=== PATIENT | male | born 1940 | race Caucasian/White ===

== ENCOUNTER → 2018-07-30 12:41 | Outpatient (CLI) | payer MEDICARE, OTHER, SELFPAY ==
--- NOTE | 2018-07-30 | DI.ECHO.S_ITS ---
[place] [facility]---------+ [facility] +---------+ : : [address] : [address] : : : : [id number] : : : : Phone: [phone] : : [phone] +---------+ Echocardiogram Report + + :Name: RANDY MALLOY Vishnu Study Date: 07/30/2018 Height: 67 in : :[facility] Exam Location: [facility] Weight: 253 lb : : Gender: Male BSA: 2.2 m2 : :: 1940 Age: 78 yrs BP: 110/70 mmHg: :Reason For Study: ASCENDING AORTA DILATION : :Ordering Physician: Timothy : :Linden Miranda Performed By: Eli Cardoza : :Referring: TIMOTHY MIRANDA : + + Interpretation Summary 1) Normal left ventricular size, wall motion, and sytolic function (EF 55- 60%). 2) Normal right ventricular size and functionj. 3) The left atrium is severely dilated. 4) There is moderate to severe mitral regurgitation. Mitral valve is not well visualized on this study. 5) The ascending aorta is mild-moderately enlarged (diameter 4.5cm). 6) Compared to the Echo done 05/11/2017, mitral regurgitation appears worse on this study. Procedure: A two-dimensional transthoracic echocardiogram with color flow and Doppler was performed. The study quality was technically adequate. Comparison is made with the echocardiogram of 05/11/17. The patient was in normal sinus rhythm during the exam. Occassional ectopy. Left Ventricle: The left ventricle is normal in size. Left ventricular wall thickness is at the upper limits of normal. The left ventricular ejection fraction is normal. The ejection fraction is estimated to be 55-60%. There are no focal wall motion abnormalities. Diastolic parameters suggest a relaxation abnormality of the left ventricle, consistent with probable normal filling pressures. Right Ventricle: The right ventricle is normal in size and function. Atria: The left atrium is severely dilated. The right atrium is mildly dilated. There is no Doppler evidence for an interatrial shunt. Mitral Valve: The mitral valve leaflets appear mildly thickened, but open well. There is moderate to severe mitral regurgitation. The mitral regurgitant jet is eccentrically directed. PISA could not be reliably performed due to 'eccentric jet'. Aortic Valve: The aortic valve is trileaflet. There is mild aortic valve sclerosis. The aortic valve opens well. There is trace aortic regurgitation. Tricuspid Valve: The tricuspid valve is normal. There is mild tricuspid regurgitation. The right ventricular systolic pressure is estimated to be at least 27 mmHg based on an estimated right atrial pressure of 3 mm Hg. Pulmonic Valve: The pulmonic valve is not well visualized. There is trace pulmonic regurgitation. Great Vessels: The aortic root is mildly dilated. The ascending aorta is mild-moderately enlarged. The aortic arch is mildly enlarged. The pulmonary is not well visualized. The IVC is of normal diameter and collapses greater than 50% with a sniff. This suggests a low right atrial pressure of 3 mm Hg. Pericardium/ Pleura There is no pericardial effusion. There is no pleural effusion. MMode/2D Measurements & Calculations LVIDd: 4.3 cm LVOT diam: 2.4 cm LVIDs: 3.3 cm Ao root diam: 4.3 cm FS: 22.1 % asc Aorta Diam: 4.5 cm EPSS: 0.30 cm Ao Arch Diam (Prox Trans): 3.8 cm IVSd: 1.2 cm LVPWd: 1.0 cm LV lim. diameter/BSA (cm/m^2): 1.9 LV sys. diameter/BSA (cm/m^2): 1.5 LA A2 area: 39.9 cm2 RA long axis: 6.7 cm LA A4 area: 37.6 cm2 RA area: 25.4 cm2 LA length (vol): 7.5 cm RA vol: 81.1 ml LA vol: 170.7 ml RA : 36.3 ml/m2 LA vol index: 76.4 ml/m2 IVC diam: 1.6 cm RVD1 (basal): 4.3 cm RVD2 (mid): 3.6 cm TAPSE: 2.3 cm Doppler Measurements & Calculations Ao V2 max: 136.7 cm/sec LVOT Max Shamar: 91.4 cm/sec Ao V2 mean: 89.9 cm/sec LV V1 max P.3 mmHg Ao max P.5 mmHg LV V1 VTI: 17.8 cm Ao mean P.7 mmHg GREGORY(I,D): 2.8 cm2 Ao V2 VTI: 28.4 cm GREGORY(V,D): 3.0 cm2 sev ratio: 0.63 GREGORY indexed to BSA (cm^2/m^2): 1.3 MV E max shamar: 117.4 cm/sec TR max shamar: 245.8 cm/sec MV A max shamar: 79.3 cm/sec TR max P.2 mmHg MV E/A: 1.5 PA V2 max: 72.3 cm/sec Med Peak E' Shamar: 8.2 cm/sec PA V2 mean: 49.0 cm/sec E/E' med: 14.3 PA mean P.1 mmHg Lat Peak E' Shamar: 11.5 cm/sec PA pr(Accel): 44.1 mmHg E/E' lat: 10.2 E/e' average: 12.2 MV dec time: 0.17 sec MV P1/2t: 51.4 msec MV P1/2t max shamar: 118.2 cm/sec MVA(P1/2t): 4.3 cm2 Reading Physician:04:29 PM
== END ==
PROVIDERS: Family Provider Internal Medicine; Visit Provider Internal Medicine Cardiovascular Disease
DX: I08.3 Combined rheumatic disorders of mitral, aortic and tricuspid valves (principal); I77.819 Aortic ectasia, unspecified site
CPT/HCPCS: 93306

== ENCOUNTER → 2019-11-20 14:15 | Outpatient (CLI) | payer MEDICARE, OTHER, SELFPAY ==
--- NOTE | 2019-11-20 | DI.ECHO.S_ITS ---
[place] [facility]---------+ [facility] +---------+ : : [address] : [address] : : : : [id number] : : : : Phone: [phone] : : [phone] +---------+ Echocardiogram Report + + :Name: RANDY MALLOY Vishnu Study Date: 11/20/2019 Height: 70 in : :[facility] Weight: 232 lb : : Gender: Male BSA: 2.2 m2 : :: 1940 Age: 79 yrs BP: 136/82 mmHg: :Reason For Study: MITRAL INSUFFICIENCY : :Ordering Physician: Timothy Cheatham : :Ruth Performed By: EDILBERTOF : :Referring: TIMOTHY MIRANDA : + + Interpretation Summary 1) Normal left ventricular size, wall motion, and systolic function (EF 65- 70%). 2) Normal right ventricular size and function. 3) The left atrium is moderately dilated. 4) Moderate mitral regirgitation that is anteriorly directed. 5) The ascending aorta is mildly enlarged at 4.4cm. 6) Compared to the Echo done 07/30/2018, mitral regurgitation appears stable to slightly improved on [facility] study. Procedure: A two-dimensional transthoracic echocardiogram with color flow and Doppler was performed. The study quality was technically difficult. A contrast injection of Definity was performed to improve assessment of LV function. Comparison is made with the echocardiogram of 07/30/2018. The subcostal views were difficult to obtain and are suboptimal in quality. The patient was in normal sinus rhythm during the exam. Left Ventricle: The left ventricle is normal in size. Left ventricular wall thickness is at the upper limits of normal. The ejection fraction is estimated to be 65-70%. Right Ventricle: The right ventricle is normal in size and function. Atria: The left atrium is moderately dilated. The right atrium is normal in size. There is no Doppler evidence for an interatrial shunt. Mitral Valve: The mitral valve leaflets appear mildly thickened, but open well. There is moderate mitral regurgitation. The mitral regurgitant jet is eccentrically directed. Aortic Valve: The aortic valve is trileaflet. The aortic valve opens well. There is mild aortic valve sclerosis. There is no aortic valve stenosis. There is mild aortic regurgitation. Tricuspid Valve: The tricuspid valve is normal in structure and function. There is trace tricuspid regurgitation. Right ventricular systolic pressure is estimated to be 22 mmHg plus the clinically estimated CVP which cannot be estimated on this exam. Pulmonic Valve: The pulmonic valve is normal in structure and function. There is no pulmonic valvular regurgitation. Great Vessels: The aortic root is normal size. The ascending aorta is mildly enlarged. The aortic arch is at the upper limits of normal in size. The inferior vena cava was not visualized. Pericardium/ Pleura There is no pericardial effusion. MMode/2D Measurements & Calculations LVIDd: 4.3 cm LVOT diam: 2.2 cm LVIDs: 2.7 cm Ao root diam: 3.9 cm FS: 37.2 % Aortic Jxn: 4.2 cm IVSd: 0.91 cm asc Aorta Diam: 4.4 cm LVPWd: 1.1 cm Ao Arch Diam (Prox Trans): 3.7 cm LV lim. diameter/BSA (cm/m^2): 1.9 LV sys. diameter/BSA (cm/m^2): 1.2 LA A2 area: 27.3 cm2 RA long axis: 4.3 cm LA A4 area: 23.5 cm2 RA area: 15.1 cm2 LA length (vol): 6.2 cm RA vol: 45.6 ml LA vol: 88.3 ml RA : 20.5 ml/m2 LA vol index: 39.7 ml/m2 RVD1 (basal): 3.8 cm RVD2 (mid): 3.1 cm TAPSE: 2.4 cm Doppler Measurements & Calculations Ao V2 max: 150.8 cm/sec LVOT Max Shamar: 114.2 cm/sec Ao V2 mean: 93.4 cm/sec LV V1 max P.2 mmHg Ao max P.1 mmHg LV V1 VTI: 16.4 cm Ao mean P.0 mmHg GREGORY(I,D): 2.5 cm2 Ao V2 VTI: 25.2 cm GREGORY(V,D): 2.9 cm2 sev ratio: 0.65 GREGORY indexed to BSA (cm^2/m^2): 1.1 MV E max shamar: 108.6 cm/sec TR max shamar: 234.9 cm/sec MV A max shamar: 74.2 cm/sec TR max P.1 mmHg MV E/A: 1.5 PA V2 max: 87.7 cm/sec Med Peak E' Shamar: 6.9 cm/sec PA V2 mean: 61.6 cm/sec E/E' med: 15.7 PA mean P.7 mmHg Lat Peak E' Shamar: 13.2 cm/sec PA Accel Time: 0.10 sec E/E' lat: 8.2 E/e' average: 12.0 MV dec time: 0.16 sec MV P1/2t: 46.6 msec MVA(VTI): 2.4 cm2 MV V2 mean: 82.2 cm/sec MV P1/2t max shamar: 110.4 cm/sec MV mean P.9 mmHg MVA(P1/2t): 4.7 cm2 MV V2 VTI: 25.5 cm SV(LVOT): 62.3 ml Reading Physician:10:09 AM
== END ==
PROVIDERS: Family Provider Internal Medicine; Referring Provider Internal Medicine Cardiovascular Disease; Visit Provider Internal Medicine Cardiovascular Disease
DX: I08.0 Rheumatic disorders of both mitral and aortic valves (principal); I77.89 Other specified disorders of arteries and arterioles
CPT/HCPCS: 93306; Q9957

== ENCOUNTER → 2020-09-21 08:26 | Outpatient (CLI) | payer MEDICARE, OTHER, SELFPAY ==
--- NOTE | 2020-09-21 | DI.ECHO.S_ITS ---
[place] [facility]---------+ [facility] +---------+ : : [address] : [address] : : : : [id number] : : : : Phone: [phone] : [phone] +---------+ Echocardiogram Report + + :Name: KIKOASIYA PALMERChet Mares Study Date: 09/21/2020 Height: 70 in : :[facility] Weight: 238 lb : : Gender: Male BSA: 2.2 m2 : :: 1940 Age: 80 yrs BP: 128/86 mmHg: :Reason For Study: MITRAL REGURGITATION : :Ordering Physician: HESHAM, : :TIMOTHY Performed By: Wilda Mtz : :Referring: TIMOTHY MIRANDA : + + Interpretation Summary 1) Normal left ventricular size, wall motion, and systolic function (EF 65- 70%). 2) Borderline enlarged right ventricular size with normal function. 3) The left atrium is severely dilated. 4) Severe mitral regurgitation that is anteriorly directed. 5) The right ventricular systolic pressure is estimated to be at least 33 mmHg based on an estimated right atrial pressure of 3 mm Hg. 6) The ascending aorta is mildly enlarged at 4.3cm. 7) Compared to the Echo done 11/20/2019, mitral regurgitation has increased from moderate to severe on this study. Procedure: A two-dimensional transthoracic echocardiogram with color flow and Doppler was performed. The study quality was technically adequate. Comparison is made with the echocardiogram of 11/20/2019. The patient was in sinus rhythm with heart rates between 61-73 bpm during the exam. Left Ventricle: The left ventricle is normal in size. Left ventricular wall thickness is borderline increased. Left ventricular ejection fraction is estimated to be 65 +/- 5%. Diastolic parameters suggest a restrictive filling pattern consistent with probable significantly elevated filling pressures. Right Ventricle: The right ventricle is borderline dilated. The right ventricular systolic function is normal. Atria: The left atrium is severely dilated. Right atrial size is normal. There is no Doppler evidence for an interatrial shunt. Mitral Valve: The mitral valve leaflets appear mildly thickened, but open well. There is severe mitral regurgitation. The mitral regurgitant jet is eccentrically directed. E velocity > 1.2m/s and holosystolic jet despite being eccentric suggests severe MR. Aortic Valve: The aortic valve is trileaflet. The aortic valve is slightly calcified. There is no aortic valve stenosis. There is mild aortic regurgitation. Tricuspid Valve: The tricuspid valve is normal in structure and function. There is mild tricuspid regurgitation. The right ventricular systolic pressure is estimated to be at least 33 mmHg based on an estimated right atrial pressure of 3 mm Hg. Pulmonic Valve: The pulmonic valve is not well visualized. There is trace pulmonic regurgitation. Great Vessels: The aortic root is mildly dilated. The ascending aorta is mildly enlarged. The IVC is of normal diameter and collapses greater than 50% with a sniff. This suggests a low right atrial pressure of 3 mm Hg. Pericardium/ Pleura There is no pericardial effusion. There is no pleural effusion. MMode/2D Measurements & Calculations LVIDd: 5.0 cm LVOT diam: 2.0 cm LVIDs: 3.4 cm Ao root diam: 4.1 cm FS: 31.8 % Ao Arch Diam (Prox Trans): 3.8 cm EPSS: 1.1 cm IVSd: 0.86 cm LVPWd: 1.1 cm LV lim. diameter/BSA (cm/m^2): 2.2 LV sys. diameter/BSA (cm/m^2): 1.5 LA A2 area: 37.0 cm2 RA long axis: 5.6 cm LA A4 area: 29.9 cm2 RA area: 18.3 cm2 LA length (vol): 7.1 cm RA vol: 50.9 ml LA vol: 132.3 ml RA : 22.7 ml/m2 LA vol index: 58.9 ml/m2 IVC diam: 1.2 cm RVD1 (basal): 4.2 cm TAPSE: 2.3 cm Doppler Measurements & Calculations Ao V2 max: 152.5 cm/sec LVOT Max Shamar: 106.2 cm/sec Ao V2 mean: 93.6 cm/sec LV V1 max P.5 mmHg Ao max P.3 mmHg LV V1 VTI: 19.6 cm Ao mean P.2 mmHg GREGORY(I,D): 2.3 cm2 Ao V2 VTI: 26.7 cm GREGORY(V,D): 2.2 cm2 sev ratio: 0.73 GREGORY indexed to BSA (cm^2/m^2): 1.0 MV E max shamar: 126.9 cm/sec TR max shamar: 275.0 cm/sec MV A max shamar: 40.0 cm/sec TR max P.3 mmHg MV E/A: 3.2 PA V2 max: 67.9 cm/sec Med Peak E' Shamar: 6.5 cm/sec PA V2 mean: 47.3 cm/sec E/E' med: 19.6 PA mean P.0 mmHg Lat Peak E' Shamar: 12.1 cm/sec PA pr(Accel): 27.6 mmHg E/E' lat: 10.5 E/e' average: 15.1 MV dec time: 0.21 sec MR ERO: 0.59 cm2 MR PISA: 6.9 cm2 SV(LVOT): 62.4 ml MR flow rate: 269.6 cm3/sec MR PISA radius: 1.0 cm Reading Physician:12:41 PM
== END ==
PROVIDERS: Family Provider Internal Medicine; PCP Internal Medicine; Referring Provider Internal Medicine Cardiovascular Disease; Visit Provider Internal Medicine Cardiovascular Disease
DX: I08.3 Combined rheumatic disorders of mitral, aortic and tricuspid valves (principal); I77.810 Thoracic aortic ectasia
CPT/HCPCS: 93306